=== PATIENT | female | born 1980 | race Caucasian/White ===

== ENCOUNTER 2020-12-24 06:20 | Emergency (ER) | payer BC ==
[~2020-12-24] VITALS: Ht 165.1 cm; Wt 83.9 kg
[2020-12-24] MEDS ORDERED: ERYT.5TO RIGHTEYE (06:52)
== END 2020-12-24 07:31 | disposition home or self-care (01) ==
LOC: ER 06:20
DX: H10.9 Unspecified conjunctivitis (principal); Z88.6 Allergy status to analgesic agent
CPT/HCPCS: 99282